=== PATIENT | male | born 1945 | race Caucasian/White ===

== ENCOUNTER → 2019-04-29 13:53 | Outpatient (BNVA) | payer MEDICARE, SELFPAY | PROVIDERS: Family Provider Nurse Practitioner Family; PCP Nurse Practitioner Family; Referring Provider Family Medicine; Visit Provider Internal Medicine Rheumatology | DX: M05.9 Rheumatoid arthritis with rheumatoid factor, unspecified (principal); Z79.899 Other long term (current) drug therapy | CPT/HCPCS: 85025 ==

== ENCOUNTER 2019-04-29 14:30 | Outpatient (CLI) | payer MEDICARE, SELFPAY ==
--- NOTE | 2019-04-29 14:46 | XR_ITS ---
WS: [id number] CHEST 2 VIEWS HISTORY: high risk medication use COMPARISON: 09/07/2018 Lungs: Stable bilateral pulmonary nodules. Seen on the prior CT of 08/10/2017. No pneumonia. Normal vas culature. Mild flattening of the diaphragms. Cardiac size: Normal. Mediastinum/Aorta: Normal mediastinum. Bones: Normal. XR/XR chest 2V* [id number] IMPRESSION: 1. Mild chronic emphysema. 2. Stable bilateral pulmonary nodules.
== END 2019-04-29 14:31 | disposition home or self-care (01) ==
LOC: RADWPI 14:35
PROVIDERS: Family Provider Nurse Practitioner Family; PCP Nurse Practitioner Family; Visit Provider Internal Medicine Rheumatology
DX: Z79.899 Other long term (current) drug therapy (principal); J43.9 Emphysema, unspecified; R91.8 Other nonspecific abnormal finding of lung field; M05.9 Rheumatoid arthritis with rheumatoid factor, unspecified; M17.0 Bilateral primary osteoarthritis of knee; Z87.891 Personal history of nicotine dependence
CPT/HCPCS: 36415; 71046; 80076; 82565; 85651; 86140; 99214

== ENCOUNTER → 2019-06-02 10:56 | Outpatient (BNVA) | payer MEDICARE, SELFPAY | PROVIDERS: Family Provider Nurse Practitioner Family; PCP Nurse Practitioner Family; Visit Provider Internal Medicine Rheumatology | DX: M05.9 Rheumatoid arthritis with rheumatoid factor, unspecified (principal); Z79.899 Other long term (current) drug therapy | CPT/HCPCS: 36415; 80076; 82565; 85025; 85651; 86140 ==

== ENCOUNTER → 2019-06-02 11:20 | Outpatient (BNVA) | payer MEDICARE, SELFPAY | PROVIDERS: Family Provider Nurse Practitioner Family; PCP Nurse Practitioner Family; Visit Provider Internal Medicine Rheumatology | DX: M05.9 Rheumatoid arthritis with rheumatoid factor, unspecified (principal); Z79.899 Other long term (current) drug therapy | CPT/HCPCS: 85025 ==

== ENCOUNTER → 2019-09-03 13:32 | Outpatient (BNVA) | payer MEDICARE, SELFPAY | PROVIDERS: Family Provider Nurse Practitioner Family; PCP Nurse Practitioner Family; Visit Provider Internal Medicine Rheumatology | DX: Z79.899 Other long term (current) drug therapy (principal) | CPT/HCPCS: 36415; 80076; 82565; 85025; 85651; 86140 ==

== ENCOUNTER → 2019-09-10 11:03 | Outpatient (BNVA) | payer MEDICARE, SELFPAY | PROVIDERS: Family Provider Nurse Practitioner Family; PCP Nurse Practitioner Family; Visit Provider Internal Medicine Rheumatology | DX: M05.79 Rheumatoid arthritis with rheumatoid factor of multiple sites without organ or systems involvement (principal); Z79.899 Other long term (current) drug therapy; J84.10 Pulmonary fibrosis, unspecified; G56.01 Carpal tunnel syndrome, right upper limb; R79.89 Other specified abnormal findings of blood chemistry; M17.0 Bilateral primary osteoarthritis of knee; Z79.1 Long term (current) use of non-steroidal anti-inflammatories (NSAID); Z87.891 Personal history of nicotine dependence | CPT/HCPCS: 99214 ==

== ENCOUNTER → 2019-11-19 13:43 | Outpatient (BNVA) | payer MEDICARE, SELFPAY | PROVIDERS: Family Provider Nurse Practitioner Family; PCP Nurse Practitioner Family; Visit Provider Family Medicine | DX: E11.9 Type 2 diabetes mellitus without complications (principal); I10 Essential (primary) hypertension; Z79.4 Long term (current) use of insulin; E78.2 Mixed hyperlipidemia; M05.79 Rheumatoid arthritis with rheumatoid factor of multiple sites without organ or systems involvement | CPT/HCPCS: 80053; 80061; 83036; 85025; 85651; 86140 ==

== ENCOUNTER → 2020-03-22 13:08 | Outpatient (BNVA) | payer MEDICARE, SELFPAY | PROVIDERS: Family Provider Nurse Practitioner Family; PCP Nurse Practitioner Family; Referring Provider Internal Medicine Rheumatology; Visit Provider Internal Medicine Rheumatology | DX: M05.79 Rheumatoid arthritis with rheumatoid factor of multiple sites without organ or systems involvement (principal); R79.89 Other specified abnormal findings of blood chemistry; Z79.899 Other long term (current) drug therapy; M19.90 Unspecified osteoarthritis, unspecified site; E11.9 Type 2 diabetes mellitus without complications; Z79.4 Long term (current) use of insulin | CPT/HCPCS: 80053; 80076; 82565; 83036; 85025; 85651; 86140 ==

== ENCOUNTER 2020-04-26 09:19 | Emergency (ER) | payer MEDICARE, OTHER, SELFPAY ==
[2020-04-26 09:29] VITALS: BP 153/92; PULSE 110; RESP 18; TEMP 36.4; O2SAT 93
--- NOTE | 2020-04-26 09:34 | XRR_ITS ---
PROCEDURE INFORMATION: Exam: XR Chest, 1 View Exam date and time: 04/26/2020 9:36 AM Age: 75 years old Clinical indication: Patient HX: Cough 3-4 days, copd, upper abd pain; Additional info: Covid exposure, cough TECHNIQUE: Imaging protocol: XR of the chest Views: 1 view. COMPARISON: CR XR chest 2V* [id number] 04/29/2019 3:03 PM FINDINGS: Lungs: Emphysema Subtle airspace disease right lung base. Pleural space: Unremarkable. No pleural effusion. No pneumothorax. Heart/Mediastinum: Unremarkable. No cardiomegaly. Bones/joints: Unremarkable. XR/XR chest 1V portable [id number] IMPRESSION: Subtle airspace disease right lung base. Follow-up recommended. Consider CT if indicated.
--- NOTE | 2020-04-26 09:42 | W.ED.COVID ---
HPI - COVID General: Chief Complaint: COVID symptoms Stated Complaint: Covid Symtoms/ fever/cough/SOB Time Seen by Provider: 04/26/20 09:33 Triage information: Has fever, cough or shortness of breath. No known COVID + exposure last 14 days History of Present Illness: HPI Narrative: Patient states he has had nausea vomiting diarrhea for the last 3 days. Has exposure to his brother who just tested positive last week. Patient denies fever chills cough or shortness of breath. MD complaint: reported COVID exposure Prior covid testing: no COVID 19 common symptoms: positive nausea, vomiting and diarrhea; negative fever(s), chills, non-productive cough, productive cough, dyspnea, body aches, headache(s), throat pain or nasal congestion COVID 19 other sytmptoms: negative chest pain Onset (ago): day(s) (3) Severity: mild Pertinent comorbid conditions: diabetes, hypertension and immunocompromised state Treatment prior to arrival: none COVID Results: SARS-CoV-2 Antigen (Rapid) Positive (Negative) H 04/26/20 10:04 04/26/20 Review of Systems Const: Denies: fever(s), chills or body aches Eyes: Denies: change in vision or blurry vision ENMT: Denies: throat pain or nasal congestion Card: Denies: chest pain or dyspnea on exertion Resp: Denies: dyspnea, productive cough or non-productive cough GI: Reports: nausea, vomiting and diarrhea : Denies: difficulty urinating Musc: Denies: extremity pain Skin/Breast: Denies: rash Neuro: Denies: headache(s) Psych: Denies: anxiety or depression Jann/Lymph: Denies: easy bruising PFSH ED PFSH: Medical History Arthritis of both knees Carpal tunnel syndrome of right wrist Chronic GERD Diabetes Elevated serum creatinine High risk medication use Hypertension Immunization counseling Mixed hyperlipidemia Pulmonary fibrosis 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 Vitamin D deficiency Surgical History History of carpal tunnel surgery of right wrist History of eye surgery bilateral History of surgery on arm left forearm Family History Other Diabetes Family history of premature coronary artery disease Hypertension Denies family history of Rheumatoid arthritis Lupus CAD (coronary artery disease) Chronic kidney disease (CKD) Cancer Stroke Social History (Reviewed 03/23/20 @ 14:13 by Marilee Streeter [facility]) Smoking and tobacco status: former smoker Alcohol intake: never History of recent travel: No Physical Exam Const: COMMON NORMALS: no acute distress, average body habitus and patient oriented x3 HENMT: COMMON NORMALS: normocephalic HEAD & SCALP: normal to inspection and normocephalic FACE & SINUS: normal facial exam Eye: COMMON NORMALS: conjunctivae normal GENERAL EYE: appearance normal, both eyes and all related structures CONJUNCTIVA: Yes conjunctivae normal Neck/C-Spine: COMMON NORMALS: no JVD Chest: COMMONS NORMALS: normal inspection of the chest Resp: COMMON NORMALS: normal respiratory effort and clear to auscultation bilaterally AUSCULTATION: clear to auscultation bilaterally Cardio: COMMON NORMALS: no JVD, regular rate and regular rhythm RATE: regular rate RHYTHM: regular rhythm GI: COMMON NORMALS: Normal to inspection, nondistended, normoactive bowel sounds present Extremity: COMMON NORMALS: normal to inspection and full ROM Neuro: COMMON NORMALS: patient oriented x3 Course Vital Signs: Vital signs: Vital Signs Temperature 98.6 F 04/26/20 14:27 Pulse Rate 73 04/26/20 14:27 Respiratory Rate 18 04/26/20 14:27 Blood Pressure 121/80 04/26/20 14:27 Pulse Oximetry 93 04/26/20 14:27 MDM - COVID MDM Narrative: Medical decision making narrative: Discussed at length with Dr. Beatty and Dr. garzon going over radiology results - lab results- plan of care, patient status. Discussed pulmonary emboli with patient and with Dr. Beatty and Dr. Garzon. Patient is stable and will receive outpatient therapy also bam infusion here today. Follow-up Dr. Nuñez this week. Lab Data: Labs: Lab Results 04/26/20 04/26/20 04/26/20 Range/Units 10:04 10:04 10:04 WBC 8.6 (4.0-10.0) 10^3/ uL RBC 4.35 (4.1-5.3) 10^6/u L Hgb 14.2 (11.7-16.6) g/dL Hct 43.0 (42.0-52.0) % MCV 98.9 H (80-94) fL MCH 32.6 (28.0-34.0) pg MCHC 33.0 (30.0-36.0) g/dL RDW 13.6 (12.1-15.1) % Plt Count 145 (130-400) 10^3/c mm MPV 9.9 (7.4-10.4) fL Neut % (Auto) 80.7 % Lymph % (Auto) 8.4 % Dane % (Auto) 9.2 % Eos % (Auto) 0.3 % Baso % (Auto) 0.6 % Neut # (Auto) 6.93 (1.8-7.7) 10^3/u L Lymph # (Auto) 0.7 L (0.8-4.8) 10^3/u L Dane # (Auto) 0.8 (0.2-0.9) 10^3/u L Eos # (Auto) 0.0 (0.0-0.8) 10^3/u L Baso # (Auto) 0.1 (0.0-0.1) 10^3/u L Nucleated RBC % (a uto) 0 % Nucleated RBCs # 0.0 /100WBC D-Dimer (0-0.59) ug/mIFE U Sodium 131 L (136-145) mmol/L Potassium 4.4 (3.5-5.1) mmol/L Chloride 95 L (98-107) mmol/L Carbon Dioxide 22 (22-29) mmol/L Anion Gap 18.4 (5-19) BUN 32 H (8-23) mg/dL Creatinine 1.6 H (0.7-1.2) mg/dL GFR Calculation Not Reportable Glucose 255 H (65-115) mg/dL Calculated Osmolal ity 288 (285-295) mOsm/k g Lactic Acid 2.1 (0.5-2.2) mmol/L Lactic Acid (Sepsi s) (0.5-2.2) mmol/L Calcium 9.1 (8.5-10.5) mg/dL Total Bilirubin 0.6 (0.15-1.2) mg/dL AST 46 H (0-40) U/L ALT 42 H (0-41) U/L Alkaline Phosphata se 62 (40-130) IU/L C-Reactive Protein 38.4 H (0.0-4.9) mg/L Total Protein 7.6 (6.6-8.7) g/dL Albumin 4.2 (3.5-5.2) g/dL Globulin 3.4 (1.3-4.6) g/dL Hepatitis A IgM Ab (Nonreactive) Hep Bs Antigen (Nonreactive) Hep B Core IgM Ab (Nonreactive) Hepatitis C Antibo dy (Nonreactive) Influenza Type A A g (Negative) Influenza Type B A g (Negative) SARS-CoV-2 Ag (Rap id) (Negative) 04/26/20 04/26/20 04/26/20 Range/Units 10:04 10:04 10:04 WBC (4.0-10.0) 10^3/ uL RBC (4.1-5.3) 10^6/u L Hgb (11.7-16.6) g/dL Hct (42.0-52.0) % MCV (80-94) fL MCH (28.0-34.0) pg MCHC (30.0-36.0) g/dL RDW (12.1-15.1) % Plt Count (130-400) 10^3/c mm MPV (7.4-10.4) fL Neut % (Auto) % Lymph % (Auto) % Dane % (Auto) % Eos % (Auto) % Baso % (Auto) % Neut # (Auto) (1.8-7.7) 10^3/u L Lymph # (Auto) (0.8-4.8) 10^3/u L Dane # (Auto) (0.2-0.9) 10^3/u L Eos # (Auto) (0.0-0.8) 10^3/u L Baso # (Auto) (0.0-0.1) 10^3/u L Nucleated RBC % (a uto) % Nucleated RBCs # /100WBC D-Dimer 3.44 H (0-0.59) ug/mIFE U Sodium (136-145) mmol/L Potassium (3.5-5.1) mmol/L Chloride (98-107) mmol/L Carbon Dioxide (22-29) mmol/L Anion Gap (5-19) BUN (8-23) mg/dL Creatinine (0.7-1.2) mg/dL GFR Calculation Glucose (65-115) mg/dL Calculated Osmolal ity (285-295) mOsm/k g Lactic Acid (0.5-2.2) mmol/L Lactic Acid (Sepsi s) (0.5-2.2) mmol/L Calcium (8.5-10.5) mg/dL Total Bilirubin (0.15-1.2) mg/dL AST (0-40) U/L ALT (0-41) U/L Alkaline Phosphata se (40-130) IU/L C-Reactive Protein (0.0-4.9) mg/L Total Protein (6.6-8.7) g/dL Albumin (3.5-5.2) g/dL Globulin (1.3-4.6) g/dL Hepatitis A IgM Ab (Nonreactive) Hep Bs Antigen (Nonreactive) Hep B Core IgM Ab (Nonreactive) Hepatitis C Antibo dy (Nonreactive) Influenza Type A A g Negative (Negative) Influenza Type B A g Positive H (Negative) SARS-CoV-2 Ag (Rap id) Positive H (Negative) 04/26/20 04/26/20 Range/Units 10:04 13:12 WBC (4.0-10.0) 10^3/ uL RBC (4.1-5.3) 10^6/u L Hgb (11.7-16.6) g/dL Hct (42.0-52.0) % MCV (80-94) fL MCH (28.0-34.0) pg MCHC (30.0-36.0) g/dL RDW (12.1-15.1) % Plt Count (130-400) 10^3/c mm MPV (7.4-10.4) fL Neut % (Auto) % Lymph % (Auto) % Dane % (Auto) % Eos % (Auto) % Baso % (Auto) % Neut # (Auto) (1.8-7.7) 10^3/u L Lymph # (Auto) (0.8-4.8) 10^3/u L Dane # (Auto) (0.2-0.9) 10^3/u L Eos # (Auto) (0.0-0.8) 10^3/u L Baso # (Auto) (0.0-0.1) 10^3/u L Nucleated RBC % (a uto) % Nucleated RBCs # /100WBC D-Dimer (0-0.59) ug/mIFE U Sodium (136-145) mmol/L Potassium (3.5-5.1) mmol/L Chloride (98-107) mmol/L Carbon Dioxide (22-29) mmol/L Anion Gap (5-19) BUN (8-23) mg/dL Creatinine (0.7-1.2) mg/dL GFR Calculation Glucose (65-115) mg/dL Calculated Osmolal ity (285-295) mOsm/k g Lactic Acid (0.5-2.2) mmol/L Lactic Acid (Sepsi s) 1.3 (0.5-2.2) mmol/L Calcium (8.5-10.5) mg/dL Total Bilirubin (0.15-1.2) mg/dL AST (0-40) U/L ALT (0-41) U/L Alkaline Phosphata se (40-130) IU/L C-Reactive Protein (0.0-4.9) mg/L Total Protein (6.6-8.7) g/dL Albumin (3.5-5.2) g/dL Globulin (1.3-4.6) g/dL Hepatitis A IgM Ab Non-reactive (Nonreactive) Hep Bs Antigen Non-reactive (Nonreactive) Hep B Core IgM Ab Non-reactive (Nonreactive) Hepatitis C Antibo dy Non-reactive (Nonreactive) Influenza Type A A g (Negative) Influenza Type B A g (Negative) SARS-CoV-2 Ag (Rap id) (Negative) COVID Results: SARS-CoV-2 Antigen (Rapid) Positive (Negative) H 04/26/20 10:04 04/26/20 Discharge Plan Discharge Patient Disposition: Home Clinical Impression: COVID-19, Influenza due to influenza virus, type B Pulmonary emboli Qualifiers: Pulmonary embolism type: other Chronicity: acute Acute cor pulmonale presence: without acute cor pulmonale Qualified Code(s): I26.99 - Other pulmonary embolism without acute cor pulmonale Condition: Stable Prescriptions: New Lovenox 80 mg/0.8 mL syringe 80 mg SUBCUT Q12H Qty: 8 RF: 0 No Action atorvastatin 40 mg tablet 40 mg PO DAILY 90 Days Qty: 90 RF: 3 omeprazole 40 mg capsule,delayed release(DR/EC) 40 mg PO DAILY Qty: 90 RF: 1 insulin detemir U-100 100 unit/mL (3 mL) insulin pen 30 unit SUBCUT DAILY 30 Days Qty: 15 RF: 5 (DME) Blood Glucose Test Strip See Rx Instructions .ROUTE .MEDSUPPLY Qty: 100 RF: 5 (DME) blood-glucose meter [Blood Glucose Monitoring] Kit See Rx Instructions .ROUTE .MEDSUPPLY Qty: 1 RF: 0 lisinopril-hydrochlorothiazide 20-12.5 mg tablet 2 tab PO DAILY 30 Days Qty: 60 RF: 5 acetaminophen [Tylenol Extra Strength] 500 mg tablet 1,000 mg PO Q6H PRN (Reason: Pain) RF: 0 calcium citrate 200 mg (950 mg) tablet 600 mg PO DAILY RF: 0 omega-3 fatty acids 1,000 mg capsule 1,000 mg PO DAILY RF: 0 cholecalciferol (vitamin D3) 1,000 unit capsule 1,000 unit PO DAILY RF: 0 multivitamin Tablet 1 tab PO QAM RF: 0 sulfasalazine 500 mg tablet 0.5 gm PO BID Qty: 60 RF: 3 prednisone 2.5 mg tablet 5 mg PO DAILY Qty: 60 RF: 0 (DME) pen needle, diabetic [BD Ultra-Fine Mini Pen Needle] 31 gauge x 3/16 needle See Rx Instructions .ROUTE .MEDSUPPLY Qty: 100 RF: 12 glimepiride 2 mg tablet 2 mg PO DAILY RF: 0 methotrexate sodium 2.5 mg tablet 10 mg PO Q7D RF: 0 gabapentin 300 mg capsule 300 mg PO TID RF: 0 folic acid 1 mg tablet 1 mg PO DAILY RF: 0 hydroxychloroquine 200 mg tablet 300 mg PO DAILY RF: 0 Discharge Orders: Discharge ED (Routine); Ordered 04/26/20 Ordered By: Compa Georges Referrals: Barrett Fuentes, COMBER SETTER [Primary Care Provider] - Discharge Diet: Advance as tolerated Discharge Activity: Increase activity as tolerated Activity Restrictions/Additional Instructions: Continue drink plenty of fluids continue to monitor blood sugar. Quarantine for at least 10 days. Make sure you wear your mask. Give yourself Lovenox shots twice a day as directed on label. Make sure you follow-up with your family medical provider this week to get refill on prescription continue for up to 12 weeks and decide on therapy for the pulmonary emboli. Return here if worsening symptoms severe shortness of breath or other problems. Go to outpatient to get your bam infusion done right now. Coding Level of Care Code ED Machine Container Washer for Jessica Fwd Exam Comprehensive
[2020-04-26 10:23] LABS: Basophils # 0.1 10^3/uL (0.0-0.1); Basophils % 0.6 %; Eosinophils % 0.3 %; Hemoglobin 14.2 g/dL (11.7-16.6); Lymphocytes # 0.7 10^3/uL (0.8-4.8); Lymphocytes % 8.4 %; Mean Corpuscular Hemoglobin 32.6 pg (28.0-34.0); Mean Corpuscular Volume 98.9 fL (80-94); Mean Platelet Volume 9.9 fL (7.4-10.4); Monocytes # 0.8 10^3/uL (0.2-0.9); Monocytes % 9.2 %; Neutrophils # 6.93 10^3/uL (1.8-7.7); Neutrophils % 80.7 %; Nucleated Red Blood Cells % 0 %; Platelet Count 145 10^3/cmm (130-400); Red Blood Count 4.35 10^6/uL (4.1-5.3); Red Cell Distribution Width 13.6 % (12.1-15.1); White Blood Count 8.6 10^3/uL (4.0-10.0)
[2020-04-26 10:45] LABS: D Dimer 3.44 ug/mIFEU (0-0.59); Influenza A by IFA Negative (Negative); Influenza B by IFA Positive (Negative); SARS Covid-2 Antigen Positive (Negative)
--- NOTE | 2020-04-26 10:48 | CT_ITS ---
WS: [id number] CT CHEST ANGIOGRAPHY WITH REFORMATS HISTORY: covid, Positive d-dimer TECHNIQUE: Contiguous axial images are obtained through the chest during arterial injection of intrav enous contrast. Images are reconstructed to evaluate the pulmonary arteries. MIP imaging also reviewe d. All CT scans at [facility] use at least one of these dose optimization techniques: aut omated exposure control; mA and/or kV adjustment per patient size (includes targeted exams where dose is matched to clinical indication); or iterative reconstruction. CONTRAST: Visipaque 320; 95 mL IV. DLP: 613.91 mGy.cm COMPARISON: 08/10/2017 Poor opacification of the pulmonary arteries. Centrally the main pulmonary artery opacification is li mited. There are filling defects extending into the RIGHT lower lobe and RIGHT middle lobe pulmonary artery. These are nonocclusive defects. Cannot exclude larger PE in the central pulmonary artery. Pul monary artery size is normal. Mild atherosclerosis aorta. Heart size is normal. No pericardial or ple ural effusion. Moderate changes of centrilobular emphysema. Peripheral reticular thickening bilaterally. Mild thicke chet along the RIGHT minor fissure. Similar to 2018. Small reactive mediastinal and hilar lymph nodes. Largest lymph node at the RIGHT hilum measures 13 m m. Hepatic steatosis. No adrenal mass. Perinephric stranding around the superior poles of each kidney. Remote healed rib fracture lateral inferior RIGHT thorax. Small hiatal hernia. CT/CT angio chest PE protcl [id number] IMPRESSION: 1. Poor opacification of the pulmonary artery. 2. There are linear nonocclusive filling defects in the RIGHT middle and lower lobe pulmonary arteries. The central main pulmonary artery is poorly opacified . Larger emboli not excluded. 3. Chronic emphysema. 4. Reactive adenopathy in the mediastinal and hilar regions. 5. Small hiatal hernia.
[2020-04-26 10:50] LABS: Lactic Sepsis W/Reflex 2.1 mmol/L (0.5-2.2)
[2020-04-26 10:52] LABS: Alanine Aminotransferase 42 U/L (0-41); Albumin Level 4.2 g/dL (3.5-5.2); Alkaline Phosphatase 62 IU/L (40-130); Anion Gap 18.4 (5-19); Aspartate Amino Transferase 46 U/L (0-40); Blood Urea Nitrogen 32 mg/dL (8-23); C Reactive Protein 38.4 mg/L (0.0-4.9); Calcium 9.1 mg/dL (8.5-10.5); Carbon Dioxide 22 mmol/L (22-29); Chloride 95 mmol/L (98-107); Globulin 3.4 g/dL (1.3-4.6); Glucose 255 mg/dL (65-115); Osmolality Calculated 288 mOsm/kg (285-295); Potassium 4.4 mmol/L (3.5-5.1); Sodium 131 mmol/L (136-145); Total Bilirubin 0.6 mg/dL (0.15-1.2); Total Protein 7.6 g/dL (6.6-8.7)
[2020-04-26] MEDS: sodium chloride 0.9% 1,000 ML 999 ML IV (10:56)
[2020-04-26 12:04] LABS: Reflex Lactate Order REFLEX LACTIC ORDERD
--- NOTE | 2020-04-26 13:50 | DCPLANNER ---
Addendum entered by Maryellen To 05/07/20 15:17: strategic account manager called to check on patient after getting the BAM infusion. strategic account manager unable to speak with patient at this time. Original Note: strategic account manager was asked to schedule a BAM infusion for patient. strategic account manager faxed signed order and patients information to the centralized scheduling.
[2020-04-26 14:06] VITALS: BP 118/61; O2SAT 95
[2020-04-26 14:10] VITALS: BP 130/68; PULSE 71; RESP 16; O2SAT 93
[2020-04-26 14:15] VITALS: BP 130/68; PULSE 73; RESP 17; O2SAT 93
[2020-04-26 14:20] VITALS: BP 130/68; PULSE 75; RESP 11; O2SAT 95
[2020-04-26 14:20] LABS: Lactic Acid level (Lactate) 1.3 mmol/L (0.5-2.2)
[2020-04-26 14:27] VITALS: BP 121/80; PULSE 73; RESP 18; TEMP 37; O2SAT 93
[2020-04-26] MEDS: enoxaparin 80 mg/0.8 mL Syringe SUBCUT (14:32)
[2020-04-26 16:01] LABS: Hepatitis A Antibody IgM Non-Reactive (Nonreactive); Hepatitis B Core IgM Non-Reactive (Nonreactive); Hepatitis B Surface Antigen Non-Reactive (Nonreactive); Hepatitis C Virus Antibody Non-Reactive (Nonreactive)
== END 2020-04-26 14:47 | disposition home or self-care (01) ==
PROVIDERS: Emergency Provider Nurse Practitioner Family; PCP Nurse Practitioner Family
DX: U07.1 COVID-19 (principal); J10.1 Influenza due to other identified influenza virus with other respiratory manifestations; I26.99 Other pulmonary embolism without acute cor pulmonale; Z79.4 Long term (current) use of insulin; E11.9 Type 2 diabetes mellitus without complications; I10 Essential (primary) hypertension; E78.2 Mixed hyperlipidemia; Z87.891 Personal history of nicotine dependence
CPT/HCPCS: 12345; 36415; 71045; 71275; 80053; 80074; 83605; 85025; 85378; 86140; 87426; 87804; 96372; 99282; J1650; J7030; Q9967

== ENCOUNTER 2020-04-28 11:00 | Emergency (ER) | payer MEDICARE, SELFPAY ==
[2020-04-28 11:45] VITALS: BP 122/74; PULSE 68; RESP 14; TEMP 36.7; O2SAT 95
--- NOTE | 2020-04-28 12:47 | W.ED.COVID ---
HPI - COVID General: Chief Complaint: COVID symptoms Stated Complaint: covid+ /LOW O2 SAT Time Seen by Provider: 04/28/20 12:19 Triage information: Has fever, cough or shortness of breath. Exposure to COVID + person last 14 days History of Present Illness: HPI Narrative: Patient is a 75-year-old male on day 5 of Covid symptoms who was initially seen in the emergency department on April 26 at which time he was diagnosed with COVID-19 as well as PE and started on Xarelto and given a dose of Banlamivimab. He was discharged home at that time and instructed to follow close with primary care which he did earlier today. When he arrived at primary care, oxygen saturation was found to be in the 80s. Given his recent diagnosis of both PE and COVID-19, the primary care physician elected to send him to the emergency department for further evaluation. On arrival, he states that he still feels sick, but significantly better than he did 2 days ago. He describes mild to moderate dyspnea with exertion, but has no dyspnea at rest and denies chest pain, lightheadedness, nausea, vomiting, current fever. He states that he has been compliant with his anticoagulation medication. He has no other acute complaints. 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 Vitamin D deficiency Surgical History History of carpal tunnel surgery of right wrist History of eye surgery bilateral History of surgery on arm left forearm Family History Other Diabetes Family history of premature coronary artery disease Hypertension Denies family history of Rheumatoid arthritis Lupus CAD (coronary artery disease) Chronic kidney disease (CKD) Cancer Stroke Social History Smoking and tobacco status: former smoker Alcohol intake: never History of recent travel: No Physical Exam Const: COMMON NORMALS: no acute distress, patient oriented x3 and alert HENMT: COMMON NORMALS: normocephalic and atraumatic HEAD & SCALP: normocephalic and atraumatic Eye: COMMON NORMALS: Equal, round and reactive pupils present, EOMs intact bilaterally and no scleral icterus PUPIL: Yes Equal, round and reactive pupils present Resp: COMMON NORMALS: normal respiratory effort and No retractions EFFORT & INSPECTION: No tachypneic, No respiratory distress, No decreased respiratory effort, No pursed lip breathing, No labored, No stridor, No retractions and No uses accessory muscles Cardio: COMMON NORMALS: regular rate, regular rhythm and No murmurs present (Cardio) RATE: regular rate RHYTHM: regular rhythm GI: COMMON NORMALS: Normal to inspection, nondistended, normoactive bowel sounds present, Soft to palpation and non-tender PALPATION: Yes Soft to palpation Neuro: COMMON NORMALS: patient oriented x3 SENSORIUM/ORIENTATION: Yes alert Skin: COMMON NORMALS: no rashes or lesions noted GENERAL SKIN EXAM: no rashes or lesions noted Course Vital Signs: Vital signs: Vital Signs Temperature 98.1 F 04/28/20 11:45 Pulse Rate 68 04/28/20 13:23 Respiratory Rate 22 H 04/28/20 13:23 Blood Pressure 122/74 04/28/20 11:45 Pulse Oximetry 92 04/28/20 15:00 MDM - COVID MDM Narrative: Medical decision making narrative: Patient was observed in the emergency department over roughly 1 hour during which time his oxygen saturation remained in the mid to high 90s. Had his saturations run in the 80s, I would have placed him on oxygen admitted to the hospital, however he appears to be stable and safe at this time. My suspicion is that pulse oximetry at the clinic may have been rushed and not as accurate as continuous monitoring in the emergency department. We discussed his situation at length and he feels comfortable going home at this time. I feel it is safe for him to do so. He will be discharged in stable condition knowing he is always welcome back in the emergency department should he begin to be more short of breath, lightheaded, experience chest pain, or any other symptoms concerning for worsening PE or Covid disease processes. COVID Results: SARS-CoV-2 Antigen (Rapid) Positive (Negative) H 04/26/20 10:04 04/26/20 Discharge Plan Discharge Patient Disposition: Home Clinical Impression: COVID-19, Pulmonary emboli Condition: Stable Prescriptions: No Action insulin detemir U-100 100 unit/mL (3 mL) insulin pen 30 unit SUBCUT DAILY 30 Days Qty: 15 RF: 5 (DME) Blood Glucose Test Strip See Rx Instructions .ROUTE .MEDSUPPLY Qty: 100 RF: 5 (DME) blood-glucose meter [Blood Glucose Monitoring] Kit See Rx Instructions .ROUTE .MEDSUPPLY Qty: 1 RF: 0 acetaminophen [Tylenol Extra Strength] 500 mg tablet 1,000 mg PO Q6H PRN (Reason: Pain) RF: 0 calcium citrate 200 mg (950 mg) tablet 600 mg PO DAILY@10 RF: 0 omega-3 fatty acids 1,000 mg capsule 1,000 mg PO DAILY@10 RF: 0 cholecalciferol (vitamin D3) 1,000 unit capsule 1,000 unit PO DAILY@10 RF: 0 multivitamin Tablet 1 tab PO DAILY@10 RF: 0 prednisone 2.5 mg tablet 5 mg PO DAILY Qty: 60 RF: 0 (DME) pen needle, diabetic [BD Ultra-Fine Mini Pen Needle] 31 gauge x 3/16 needle See Rx Instructions .ROUTE .MEDSUPPLY Qty: 100 RF: 12 glimepiride 2 mg tablet 2 mg PO DAILY@10 RF: 0 methotrexate sodium 2.5 mg tablet 10 mg PO Q7D RF: 0 gabapentin 300 mg capsule 300 mg PO TID RF: 0 folic acid 1 mg tablet 1 mg PO DAILY@10 RF: 0 hydroxychloroquine 200 mg tablet 300 mg PO DAILY@10 RF: 0 enoxaparin [Lovenox] 80 mg/0.8 mL syringe 80 mg SUBCUT Q12H Qty: 8 RF: 0 atorvastatin 40 mg tablet 40 mg PO DAILY@2200 RF: 0 sulfasalazine 500 mg tablet 0.5 gm PO BID@10,22 RF: 0 lisinopril-hydrochlorothiazide 20-12.5 mg tablet 2 tab PO DAILY@10 RF: 0 omeprazole 40 mg capsule,delayed release(DR/EC) 40 mg PO DAILY@10 RF: 0 Lantus U-100 Insulin 100 unit/mL Solution 30 unit SUBCUT DAILY@22 RF: 0 Discharge Orders: Discharge ED (Routine); Ordered 04/28/20 Ordered By: Gonsalo Pedroza Referrals: Barrett Fuentes FNP [Primary Care Provider] - Discharge Diet: Usual diet Discharge Activity: Increase activity as tolerated Activity Restrictions/Additional Instructions: You were sent to the emergency department today because you have both the diagnoses of pulmonary embolism and COVID-19. This combination puts you at risk for low oxygen levels, however while here your levels have been stable and safe. You do not qualify for home oxygen and would not benefit from being admitted to the hospital at this time. You are on day 5 of your symptoms, and sometimes people get worse around day 8 or 10 of COVID-19. Please be mindful of the way feel and if you become short of breath or lightheaded please have no hesitation to return to the emergency department. Coding Level of Care Code ED Ict Business Development Manager for Jessica Fwd Exam Detailed
[2020-04-28 13:23] VITALS: PULSE 68; RESP 22; O2SAT 90
[2020-04-28 13:24] VITALS: O2SAT 90
[2020-04-28 14:00] VITALS: O2SAT 92
[2020-04-28 14:02] VITALS: O2SAT 91; O2SAT 94
[2020-04-28 15:00] VITALS: O2SAT 92
== END 2020-04-28 15:01 | disposition home or self-care (01) ==
PROVIDERS: Emergency Provider Student in an Organized Health Care Education/Training Program; PCP Nurse Practitioner Family
DX: U07.1 COVID-19 (principal); I26.99 Other pulmonary embolism without acute cor pulmonale; Z79.4 Long term (current) use of insulin; E11.9 Type 2 diabetes mellitus without complications; I10 Essential (primary) hypertension; E78.2 Mixed hyperlipidemia; Z87.891 Personal history of nicotine dependence
CPT/HCPCS: 12345; 94760; 99282

== ENCOUNTER 2020-05-03 14:21 | Emergency (ER) | payer MEDICARE, SELFPAY ==
[2020-05-03 15:42] VITALS: BP 113/70; PULSE 99; RESP 14; TEMP 39.1; O2SAT 90
--- NOTE | 2020-05-03 15:46 | XR_ITS ---
WS: [id number] Exam: XR chest 1V portable [id number] Date/Time of Exam: 05/03/2020 3:59 PM Reason For Exam: covid+, , sob Comparison 04/26/2020. Ill-defined airspace opacities seen in the mid and lower right lung and the left lung base. Findings are suspicious for pneumonia. Heart size is normal. The mediastinum and bony thorax are unremarkable. The lungs are fully inflated. No pleural effusions. XR/XR chest 1V portable [id number] IMPRESSION: 1. Subtle airspace opacities in the mid and lower right lung and left base susp icious for pneumonia.
[2020-05-03 16:45] LABS: ABG PCO2 30.5 mmHg (35-45); ABG PH Result 7.43 (7.35-7.45); Arterial Blood Gas Hematocrit 38.2 % (42-52); Base Excess ABG -3.5 mmol/L (-2.0-2.0); Blood Gas Allen Test Pos; Blood Gas Operator Identificat CAK; Blood Gas Sample Site Brachial, left; Blood Gas Sample Type Arterial; Oxygen Device ROOM AIR
[2020-05-03 18:35] VITALS: BP 106/74; PULSE 81; RESP 18; O2SAT 95; O2SAT 97
[2020-05-03 18:40] LABS: Basophils % 0.3 %; Eosinophils % 0.5 %; Hematocrit 35.4 % (42.0-52.0); Hemoglobin 12.1 g/dL (11.7-16.6); Lymphocytes % 17.1 %; Mean Corpuscular HGB Conc 34.2 g/dL (30.0-36.0); Mean Corpuscular Volume 96.5 fL (80-94); Mean Platelet Volume 9.9 fL (7.4-10.4); Monocytes # 0.7 10^3/uL (0.2-0.9); Monocytes % 11.5 %; Neutrophils # 4.17 10^3/uL (1.8-7.7); Neutrophils % 69.8 %; Nucleated Red Blood Cells % 0 %; Platelet Count 184 10^3/cmm (130-400); Red Blood Count 3.67 10^6/uL (4.1-5.3); Red Cell Distribution Width 13.8 % (12.1-15.1)
[2020-05-03 19:05] LABS: Fibrinogen 498 mg/dL (174-498)
[2020-05-03 19:13] LABS: Lactic Sepsis W/Reflex 1.3 mmol/L (0.5-2.2)
[2020-05-03 19:30] LABS: Procalcitonin 0.12 ng/mL (0-0.5)
[2020-05-03 19:40] VITALS: O2SAT 91; O2SAT 95
[2020-05-03 19:51] LABS: Alanine Aminotransferase 45 U/L (0-41); Albumin Level 3.5 g/dL (3.5-5.2); Alkaline Phosphatase 37 IU/L (40-130); Aspartate Amino Transferase 70 U/L (0-40); Blood Urea Nitrogen 35 mg/dL (8-23); C Reactive Protein 88.8 mg/L (0.0-4.9); Calcium 11.5 mg/dL (8.5-10.5); Carbon Dioxide 21 mmol/L (22-29); Chloride 99 mmol/L (98-107); Globulin 3.6 g/dL (1.3-4.6); Glucose 188 mg/dL (65-115); Magnesium 1.8 mg/dL (1.7-2.3); Osmolality Calculated 293 mOsm/kg (285-295); Sodium 135 mmol/L (136-145); Total Bilirubin 0.6 mg/dL (0.15-1.2); Total Protein 7.1 g/dL (6.6-8.7)
[2020-05-03 19:52] LABS: Anion Gap 19.3 (5-19); Potassium 4.3 mmol/L (3.5-5.1)
[2020-05-03 20:07] LABS: Ferritin 2166 ng/mL (30-400)
--- NOTE | 2020-05-03 20:29 | W.ED.COVID ---
HPI - COVID General: Chief Complaint: COVID symptoms Stated Complaint: SOB, COVID+ Time Seen by Provider: 05/03/20 17:32 Source: patient Mode of arrival: ambulatory Limitations: no limitations Triage information: Has fever, cough or shortness of breath. Exposure to COVID + person last 14 days History of Present Illness: HPI Narrative: Mr. Chávez is a pleasant 75-year-old male who was diagnosed with COVID-19 7 days ago. He came into the emergency department at the time with complaints of shortness of breath and on evaluation was tested for COVID-19 and who tested positive. At that time he also was diagnosed with influenza, and pulmonary embolism and was started on anticoagulation. He saw his primary care provider 2 days after that and he was noted to be hypoxic so he was sent to the emergency department for evaluation. Emergency department he was not hypoxic and was discharged back home. He comes back today with complaints of feeling short of breath. He was also noted to be hypoxic. Patient states his appetite has decreased and he feels pretty weak. MD complaint: known COVID positive Prior covid testing: yes, results known COVID 19 common symptoms: positive fever(s), chills, dyspnea, fatigue, body aches and diarrhea; negative cough, non-productive cough, productive cough, headache(s), throat pain, nasal congestion, nausea or vomiting COVID 19 other sytmptoms: positive requiring oxygen; negative chest pressure, chest pain, pleuritic pain, requiring more oxygen, respiratory distress, cyanosis, lethargy, confusion or new neurological complaints COVID Results: SARS-CoV-2 Antigen (Rapid) Positive (Negative) H 04/26/20 10:04 04/26/20 Review of Systems General: Reports: 10 or more systems reviewed and unremarkable except in HPI and below Const: Reports: fever(s), chills, body aches and fatigue Eyes: Denies: change in vision or blurry vision ENMT: Denies: throat pain or nasal congestion Card: Denies: chest pain Resp: Reports: dyspnea; Denies: productive cough or non-productive cough GI: Reports: diarrhea; Denies: nausea or vomiting : Denies: flank pain, dysuria, urinary frequency, urinary urgency or urinary hesitancy Musc: Denies: neck pain, back pain or extremity swelling Skin/Breast: Denies: rash, pruritus or erythema Neuro: Denies: headache(s) or confusion Endo: Denies: polyuria, polydipsia or tired all the time PFSH ED PFSH: Medical History (Reviewed 05/03/20 @ 22:18 by Sarah Rivera MD, [facility] [place]) Arthritis of both knees Carpal tunnel syndrome of right wrist Chronic GERD Diabetes Elevated serum creatinine High risk medication use Hypertension Immunization counseling Mixed hyperlipidemia Pulmonary fibrosis 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 Vitamin D deficiency Surgical History (Reviewed 05/03/20 @ 22:18 by Sarah Rivera MD, [facility] [place]) History of carpal tunnel surgery of right wrist History of eye surgery bilateral History of surgery on arm left forearm Family History (Reviewed 05/03/20 @ 22:18 by Sarah Rivera MD, [facility] [place]) Other Diabetes Family history of premature coronary artery disease Hypertension Denies family history of Rheumatoid arthritis Lupus CAD (coronary artery disease) Chronic kidney disease (CKD) Cancer Stroke Social History (Reviewed 05/03/20 @ 22:18 by Sarah Rivera MD, [facility] [place]) Smoking and tobacco status: former smoker Alcohol intake: never History of recent travel: No Physical Exam Const: COMMON NORMALS: no acute distress, average body habitus, patient oriented x3, no limitations, healthy appearing, alert and well nourished HENMT: COMMON NORMALS: normocephalic, atraumatic and moist oral mucous membranes HEAD & SCALP: normocephalic and atraumatic Neck/C-Spine: COMMON NORMALS: no meningeal signs and no JVD Resp: COMMON NORMALS: normal respiratory effort, No retractions, No use of accessory muscles, clear to auscultation bilaterally and percussion normal AUSCULTATION: clear to auscultation bilaterally PERCUSSION: percussion normal Cardio: COMMON NORMALS: no JVD, regular rate, regular rhythm, S1 normal heart sound present, S2 normal heart sound present, No gallops present (Cardio), No clicks present (Cardio), No murmurs present (Cardio), No rub (Cardio) and Peripheral pulses 2+ throughout RATE: regular rate RHYTHM: regular rhythm HEART SOUNDS: S1 normal heart sound present and S2 normal heart sound present PERIPHERAL PULSES: Peripheral pulses 2+ throughout GI: COMMON NORMALS: Normal to inspection, nondistended, normoactive bowel sounds present, Soft to palpation, non-tender, No hepatosplenomegaly present, no masses and no bruits PALPATION: Yes Soft to palpation and Yes No hepatosplenomegaly present Extremity: COMMON NORMALS: normal to inspection, full ROM, capillary refill normal, no calf tenderness and no pedal edema Neuro: COMMON NORMALS: patient oriented x3 SENSORIUM/ORIENTATION: Yes alert MENINGEAL SIGNS: Yes no meningeal signs Skin: COMMON NORMALS: no rashes or lesions noted, no wounds, turgor normal, no jaundice, no petechiae and no mottling GENERAL SKIN EXAM: no rashes or lesions noted and turgor normal Course Reevaluation(s): Reevaluation #1: Discussed his lab and imaging findings with him. Explained that he is requiring oxygen and since this is his third visit to the emergency department for the same I advised that he be admitted to the hospital for further evaluation and management. The patient however declined and felt he was well enough to be discharged home. We will arrange for home oxygen and discharge him home on oxygen. He voiced understanding and is in agreement with the plan Time: 20:29 Reevaluation #2: Discussed with the patient's brother. The brother was concerned that we were discharging the patient home and I explained that the patient chose to be discharged home and declined hospital admission. I advised that since the patient is competent to make a medical decision I have to go by his wishes. I advised the brother to try to convince him to stay but the brother says that the patient is pretty stubborn and will not change his mind. They advised to bring him back if they have any concerns or if he gets any worse. Time: 20:42 Vital Signs: Vital signs: Vital Signs Temperature 102.3 F H 05/03/20 15:42 Pulse Rate 81 05/03/20 21:52 Respiratory Rate 18 05/03/20 21:52 Blood Pressure 109/85 05/03/20 21:52 Pulse Oximetry 94 05/03/20 21:52 MDM - COVID MDM Narrative: Medical decision making narrative: 75-year-old male who was recently diagnosed with COVID-19, influenza, pulmonary embolism. This is the third visit to the emergency department for the same and he was advised to be admitted to the hospital. Patient however declined hospital admission. Home oxygen was arranged for this patient and he is discharged home on home oxygen. He was also given a prescription for oral dexamethasone. He has already received a monoclonal antibody infusion 7 days ago. Medical Records: Attestation: I reviewed the patient's medical records. Lab Data: Attestation: I reviewed the patient's lab results. Labs: Lab Results 05/03/20 05/03/20 05/03/20 Range/Units 16:34 18:27 18:27 WBC 6.0 (4.0-10.0) 10^3/ uL RBC 3.67 L (4.1-5.3) 10^6/u L Hgb 12.1 (11.7-16.6) g/dL Hct 35.4 L (42.0-52.0) % MCV 96.5 H (80-94) fL MCH 33.0 (28.0-34.0) pg MCHC 34.2 (30.0-36.0) g/dL RDW 13.8 (12.1-15.1) % Plt Count 184 (130-400) 10^3/c mm MPV 9.9 (7.4-10.4) fL Neut % (Auto) 69.8 % Lymph % (Auto) 17.1 % Hickman % (Auto) 11.5 % Eos % (Auto) 0.5 % Baso % (Auto) 0.3 % Neut # (Auto) 4.17 (1.8-7.7) 10^3/u L Lymph # (Auto) 1.0 (0.8-4.8) 10^3/u L Hickman # (Auto) 0.7 (0.2-0.9) 10^3/u L Eos # (Auto) 0.0 (0.0-0.8) 10^3/u L Baso # (Auto) 0.0 (0.0-0.1) 10^3/u L Nucleated RBC % (a uto) 0 % Nucleated RBCs # 0.0 /100WBC Fibrinogen 498 (174-498) mg/dL Specimen Type Arterial Sample Site Brachial, left ABG pH 7.43 (7.35-7.45) ABG pCO2 30.5 L (35-45) mmHg ABG pO2 55.0 L (80.0-100.0) mmH g ABG HCO3 20.0 L (22-26) mmol/L ABG Base Excess -3.5 L (-2.0-2.0) mmol/ L Sridhar Test Pos Hematocrit 38.2 L (42-52) % O2 Delivery Device Room air FiO2 21.0 % [employer]man ID Cak Sodium (136-145) mmol/L Potassium (3.5-5.1) mmol/L Chloride (98-107) mmol/L Carbon Dioxide (22-29) mmol/L Anion Gap (5-19) BUN (8-23) mg/dL Creatinine (0.7-1.2) mg/dL GFR Calculation Glucose (65-115) mg/dL Calculated Osmolal ity (285-295) mOsm/k g Lactic Acid (0.5-2.2) mmol/L Calcium (8.5-10.5) mg/dL Magnesium (1.7-2.3) mg/dL Ferritin (30-400) ng/mL Total Bilirubin (0.15-1.2) mg/dL AST (0-40) U/L ALT (0-41) U/L Alkaline Phosphata se (40-130) IU/L Lactate Dehydrogen ase (135-225) U/L C-Reactive Protein (0.0-4.9) mg/L Total Protein (6.6-8.7) g/dL Albumin (3.5-5.2) g/dL Globulin (1.3-4.6) g/dL Procalcitonin (0-0.5) ng/mL 05/03/20 05/03/20 Range/Units 18:27 18:27 WBC (4.0-10.0) 10^3/ uL RBC (4.1-5.3) 10^6/u L Hgb (11.7-16.6) g/dL Hct (42.0-52.0) % MCV (80-94) fL MCH (28.0-34.0) pg MCHC (30.0-36.0) g/dL RDW (12.1-15.1) % Plt Count (130-400) 10^3/c mm MPV (7.4-10.4) fL Neut % (Auto) % Lymph % (Auto) % Hickman % (Auto) % Eos % (Auto) % Baso % (Auto) % Neut # (Auto) (1.8-7.7) 10^3/u L Lymph # (Auto) (0.8-4.8) 10^3/u L Hickman # (Auto) (0.2-0.9) 10^3/u L Eos # (Auto) (0.0-0.8) 10^3/u L Baso # (Auto) (0.0-0.1) 10^3/u L Nucleated RBC % (a uto) % Nucleated RBCs # /100WBC Fibrinogen (174-498) mg/dL Specimen Type Sample Site ABG pH (7.35-7.45) ABG pCO2 (35-45) mmHg ABG pO2 (80.0-100.0) mmH g ABG HCO3 (22-26) mmol/L ABG Base Excess (-2.0-2.0) mmol/ L Sridhar Test Hematocrit (42-52) % O2 Delivery Device FiO2 % [employer]man ID Sodium 135 L (136-145) mmol/L Potassium 4.3 (3.5-5.1) mmol/L Chloride 99 (98-107) mmol/L Carbon Dioxide 21 L (22-29) mmol/L Anion Gap 19.3 H (5-19) BUN 35 H (8-23) mg/dL Creatinine 1.3 H (0.7-1.2) mg/dL GFR Calculation Not Reportable Glucose 188 H (65-115) mg/dL Calculated Osmolal ity 293 (285-295) mOsm/k g Lactic Acid 1.3 (0.5-2.2) mmol/L Calcium 11.5 H (8.5-10.5) mg/dL Magnesium 1.8 (1.7-2.3) mg/dL Ferritin 2166 H (30-400) ng/mL Total Bilirubin 0.6 (0.15-1.2) mg/dL AST 70 H (0-40) U/L ALT 45 H (0-41) U/L Alkaline Phosphata se 37 L (40-130) IU/L Lactate Dehydrogen ase 370 H (135-225) U/L C-Reactive Protein 88.8 H (0.0-4.9) mg/L Total Protein 7.1 (6.6-8.7) g/dL Albumin 3.5 (3.5-5.2) g/dL Globulin 3.6 (1.3-4.6) g/dL Procalcitonin 0.12 (0-0.5) ng/mL COVID Results: SARS-CoV-2 Antigen (Rapid) Positive (Negative) H 04/26/20 10:04 04/26/20 Discharge Plan Discharge Patient Disposition: Home Clinical Impression: COVID-19 Pulmonary embolism Qualifiers: Pulmonary embolism type: unspecified Chronicity: acute Acute cor pulmonale presence: without acute cor pulmonale Qualified Code(s): I26.99 - Other pulmonary embolism without acute cor pulmonale Condition: Stable Prescriptions: New dexamethasone 6 mg tablet 6 mg PO DAILY Qty: 5 RF: 0 Continued insulin detemir U-100 100 unit/mL (3 mL) insulin pen 30 unit SUBCUT DAILY 30 Days Qty: 15 RF: 5 (DME) Blood Glucose Test Strip See Rx Instructions .ROUTE .MEDSUPPLY Qty: 100 RF: 5 (DME) blood-glucose meter [Blood Glucose Monitoring] Kit See Rx Instructions .ROUTE .MEDSUPPLY Qty: 1 RF: 0 acetaminophen [Tylenol Extra Strength] 500 mg tablet 1,000 mg PO Q6H PRN (Reason: Pain) RF: 0 calcium citrate 200 mg (950 mg) tablet 600 mg PO DAILY@10 RF: 0 omega-3 fatty acids 1,000 mg capsule 1,000 mg PO DAILY@10 RF: 0 cholecalciferol (vitamin D3) 1,000 unit capsule 1,000 unit PO DAILY@10 RF: 0 multivitamin Tablet 1 tab PO DAILY@10 RF: 0 prednisone 2.5 mg tablet 5 mg PO DAILY Qty: 60 RF: 0 (DME) pen needle, diabetic [BD Ultra-Fine Mini Pen Needle] 31 gauge x 3/16 needle See Rx Instructions .ROUTE .MEDSUPPLY Qty: 100 RF: 12 enoxaparin [Lovenox] 80 mg/0.8 mL syringe 80 mg SUBCUT Q12H Qty: 11.2 RF: 3 glimepiride 2 mg tablet 2 mg PO DAILY@10 RF: 0 methotrexate sodium 2.5 mg tablet 10 mg PO Q7D RF: 0 gabapentin 300 mg capsule 300 mg PO TID RF: 0 folic acid 1 mg tablet 1 mg PO DAILY@10 RF: 0 hydroxychloroquine 200 mg tablet 300 mg PO DAILY@10 RF: 0 atorvastatin 40 mg tablet 40 mg PO DAILY@2200 RF: 0 sulfasalazine 500 mg tablet 0.5 gm PO BID@10,22 RF: 0 lisinopril-hydrochlorothiazide 20-12.5 mg tablet 2 tab PO DAILY@10 RF: 0 omeprazole 40 mg capsule,delayed release(DR/EC) 40 mg PO DAILY@10 RF: 0 Lantus U-100 Insulin 100 unit/mL Solution 30 unit SUBCUT DAILY@22 RF: 0 Discharge Orders: Discharge ED (Routine); Ordered 05/03/20 Ordered By: Sarah Rivera Other Ambulatory Orders: DME: Oxygen (Order) Location: None Selected Ordered By: Sarah Rivera Referrals: Barrett Fuentes FNP [Primary Care Provider] - 1-3 days Discharge Diet: Usual diet Discharge Activity: Increase activity as tolerated Patient Instructions: Pulmonary Embolism (GEN), Viral Syndrome (ED) Activity Restrictions/Additional Instructions: Return for any new or worsening symptoms. Follow-up with your primary care provider tomorrow via telemedicine so they can check to see how you are doing. Continue your medications as prescribed especially blood thinners and steroids. Coding Level of Care Code ED Program Support Clerk for Jessica Perez
[2020-05-03 21:17] LABS: Lactate Dehydrogenase 370 U/L (135-225)
[2020-05-03 21:52] VITALS: BP 109/85; PULSE 81; RESP 18; O2SAT 94
== END 2020-05-03 21:54 | disposition home or self-care (01) ==
PROVIDERS: Nurse Practitioner Family; Emergency Provider Family Medicine; PCP Nurse Practitioner Family
DX: U07.1 COVID-19 (principal); I26.99 Other pulmonary embolism without acute cor pulmonale; Z79.4 Long term (current) use of insulin; E11.9 Type 2 diabetes mellitus without complications; I10 Essential (primary) hypertension; E78.2 Mixed hyperlipidemia; Z87.891 Personal history of nicotine dependence
CPT/HCPCS: 12345; 36600; 71045; 80053; 82728; 82803; 83605; 83615; 83735; 84145; 85025; 85384; 86140; 99283

== ENCOUNTER → 2020-06-09 14:20 | Outpatient (BNVA) | payer MEDICARE, SELFPAY | PROVIDERS: PCP Family Medicine; Visit Provider Internal Medicine Rheumatology | DX: M19.90 Unspecified osteoarthritis, unspecified site (principal); Z79.899 Other long term (current) drug therapy; R79.89 Other specified abnormal findings of blood chemistry | CPT/HCPCS: 80076; 82565; 85025; 86140 ==

== ENCOUNTER → 2020-08-17 10:49 | Outpatient (BNVA) | payer MEDICARE, SELFPAY | PROVIDERS: PCP Family Medicine; Visit Provider Family Medicine | DX: E11.9 Type 2 diabetes mellitus without complications (principal); R79.89 Other specified abnormal findings of blood chemistry; E78.2 Mixed hyperlipidemia; L70.8 Other acne; E87.1 Hypo-osmolality and hyponatremia; E83.51 Hypocalcemia; Z79.4 Long term (current) use of insulin | CPT/HCPCS: 80053; 80061; 83036 ==

== ENCOUNTER → 2020-11-29 14:27 | Outpatient (BNVA) | payer MEDICARE, SELFPAY | PROVIDERS: PCP Family Medicine; Referring Provider Internal Medicine Rheumatology; Visit Provider Internal Medicine Rheumatology | DX: M05.79 Rheumatoid arthritis with rheumatoid factor of multiple sites without organ or systems involvement (principal); Z79.899 Other long term (current) drug therapy | CPT/HCPCS: 80076; 82565; 85025; 86140 ==

== ENCOUNTER → 2020-12-06 14:48 | Outpatient (BNVA) | payer MEDICARE, SELFPAY | PROVIDERS: PCP Family Medicine; Visit Provider Internal Medicine Rheumatology | DX: M05.79 Rheumatoid arthritis with rheumatoid factor of multiple sites without organ or systems involvement (principal); Z79.899 Other long term (current) drug therapy; G56.01 Carpal tunnel syndrome, right upper limb; M17.0 Bilateral primary osteoarthritis of knee; Z71.89 Other specified counseling; Z87.891 Personal history of nicotine dependence | CPT/HCPCS: 99214 ==

== ENCOUNTER → 2021-03-08 08:58 | Outpatient (BNVA) | payer MEDICARE, SELFPAY | PROVIDERS: PCP Family Medicine; Visit Provider Family Medicine | DX: E11.9 Type 2 diabetes mellitus without complications (principal); Z79.4 Long term (current) use of insulin; I10 Essential (primary) hypertension | CPT/HCPCS: 36416; 80053; 82962; 83036 ==

== ENCOUNTER → 2021-03-24 13:20 | Outpatient (BNVA) | payer MEDICARE, SELFPAY | PROVIDERS: PCP Family Medicine; Visit Provider Internal Medicine Rheumatology | DX: M05.79 Rheumatoid arthritis with rheumatoid factor of multiple sites without organ or systems involvement (principal); Z79.899 Other long term (current) drug therapy; G56.01 Carpal tunnel syndrome, right upper limb; M17.0 Bilateral primary osteoarthritis of knee; J84.10 Pulmonary fibrosis, unspecified; Z71.89 Other specified counseling; Z87.891 Personal history of nicotine dependence; E11.9 Type 2 diabetes mellitus without complications; Z79.4 Long term (current) use of insulin | CPT/HCPCS: 99214 ==

== ENCOUNTER 2021-03-24 15:14 | Outpatient (CLI) | payer MEDICARE, SELFPAY ==
[2021-03-24 15:55] LABS: Basophils # 0.1 10^3/uL (0.0-0.1); Basophils % 1.1 %; Eosinophils # 0.1 10^3/uL (0.0-0.8); Hematocrit 34.6 % (42.0-52.0); Hemoglobin 11.4 g/dL (11.7-16.6); Lymphocytes % 12.2 %; Mean Corpuscular HGB Conc 32.9 g/dL (30.0-36.0); Mean Corpuscular Hemoglobin 33.4 pg (28.0-34.0); Mean Corpuscular Volume 101.5 fl (80-94); Mean Platelet Volume 9.4 fL (7.4-10.4); Monocytes # 0.6 10^3/uL (0.2-0.9); Monocytes % 7.6 %; Neutrophils % 76.2 %; Nucleated Red Blood Cells % 0 %; Platelet Count 301 10^3/cmm (130-400); Red Blood Count 3.41 10^6/uL (4.1-5.3); White Blood Count 8.3 10^3/uL (4.0-10.0)
[2021-03-24 16:11] LABS: Calcium 9.3 mg/dL (8.5-10.5)
[2021-03-24 16:12] LABS: Blood Urea Nitrogen 67 mg/dL (8-23); Calcium 9.2 mg/dL (8.5-10.5); Carbon Dioxide 16 mmol/L (22-29); Chloride 97 mmol/L (98-107); Glucose 223 mg/dL (65-115); Osmolality Calculated 298 mOsm/kg (285-295); Sodium 131 mmol/L (136-145)
[2021-03-24 16:27] LABS: Estmated Average Glucose 217; Hemoglobin A1C 9.2 % (4.0-6.0)
[2021-03-24 17:42] LABS: 25 Hydroxy Vitamin D 22 ng/mL (30-100)
== END 2021-03-24 15:15 | disposition home or self-care (01) ==
LOC: LAB 15:23
PROVIDERS: PCP Family Medicine; Visit Provider Internal Medicine Rheumatology
DX: M05.79 Rheumatoid arthritis with rheumatoid factor of multiple sites without organ or systems involvement (principal); Z79.899 Other long term (current) drug therapy; E11.9 Type 2 diabetes mellitus without complications; Z79.4 Long term (current) use of insulin
CPT/HCPCS: 36415; 80048; 82040; 82306; 82310; 83036; 85025

== ENCOUNTER → 2021-03-28 10:38 | Outpatient (BNVA) | payer MEDICARE, SELFPAY | PROVIDERS: PCP Family Medicine; Visit Provider Family Medicine | DX: J18.9 Pneumonia, unspecified organism (principal); R79.89 Other specified abnormal findings of blood chemistry; J44.1 Chronic obstructive pulmonary disease with (acute) exacerbation; J44.9 Chronic obstructive pulmonary disease, unspecified; E11.9 Type 2 diabetes mellitus without complications; Z79.4 Long term (current) use of insulin; Z87.891 Personal history of nicotine dependence; E55.9 Vitamin D deficiency, unspecified; Z79.899 Other long term (current) drug therapy | CPT/HCPCS: 71046; 80048 ==

== ENCOUNTER → 2021-06-06 11:24 | Outpatient (BNVA) | payer MEDICARE, SELFPAY | PROVIDERS: PCP Family Medicine; Visit Provider Family Medicine | DX: E78.2 Mixed hyperlipidemia (principal); I10 Essential (primary) hypertension; E11.9 Type 2 diabetes mellitus without complications; Z79.899 Other long term (current) drug therapy; M05.79 Rheumatoid arthritis with rheumatoid factor of multiple sites without organ or systems involvement; R25.2 Cramp and spasm | CPT/HCPCS: 80053; 80061; 83036 ==

== ENCOUNTER → 2021-12-01 13:50 | Outpatient (BNVA) | payer MEDICARE, SELFPAY | PROVIDERS: PCP Family Medicine; Visit Provider Family Medicine | DX: E11.9 Type 2 diabetes mellitus without complications (principal); Z79.4 Long term (current) use of insulin; I10 Essential (primary) hypertension | CPT/HCPCS: 80053; 83036 ==

== ENCOUNTER → 2022-02-28 10:43 | Outpatient (BNVA) | payer MEDICARE, SELFPAY | PROVIDERS: PCP Family Medicine; Visit Provider Family Medicine | DX: E11.9 Type 2 diabetes mellitus without complications (principal); I10 Essential (primary) hypertension | CPT/HCPCS: 80048; 83036 ==

== ENCOUNTER → 2022-05-31 13:22 | Outpatient (BNVA) | payer MEDICARE, SELFPAY | PROVIDERS: PCP Family Medicine; Visit Provider Family Medicine | DX: E78.2 Mixed hyperlipidemia (principal); E11.9 Type 2 diabetes mellitus without complications; M05.79 Rheumatoid arthritis with rheumatoid factor of multiple sites without organ or systems involvement; I10 Essential (primary) hypertension; Z79.4 Long term (current) use of insulin | CPT/HCPCS: 80053; 80061; 83036; 85025; 85651; 86140 ==

== ENCOUNTER → 2022-08-30 14:36 | Outpatient (BNVA) | payer MEDICARE, SELFPAY | PROVIDERS: PCP Family Medicine; Visit Provider Family Medicine | DX: E11.9 Type 2 diabetes mellitus without complications (principal); Z79.4 Long term (current) use of insulin; I10 Essential (primary) hypertension | CPT/HCPCS: 80053; 83036 ==

== ENCOUNTER → 2022-11-29 14:37 | Outpatient (BNVA) | payer MEDICARE, SELFPAY | PROVIDERS: PCP Family Medicine; Visit Provider Family Medicine | DX: E11.9 Type 2 diabetes mellitus without complications (principal); I10 Essential (primary) hypertension; J44.9 Chronic obstructive pulmonary disease, unspecified; E78.2 Mixed hyperlipidemia; R25.2 Cramp and spasm; M05.9 Rheumatoid arthritis with rheumatoid factor, unspecified; Z79.4 Long term (current) use of insulin; Z79.899 Other long term (current) drug therapy; M05.79 Rheumatoid arthritis with rheumatoid factor of multiple sites without organ or systems involvement; K21.9 Gastro-esophageal reflux disease without esophagitis | CPT/HCPCS: 83036 ==

== ENCOUNTER → 2023-02-26 13:40 | Outpatient (BNVA) | payer MEDICARE, SELFPAY | PROVIDERS: PCP Family Medicine; Visit Provider Family Medicine | DX: E11.9 Type 2 diabetes mellitus without complications (principal); Z79.4 Long term (current) use of insulin; M05.9 Rheumatoid arthritis with rheumatoid factor, unspecified; Z79.899 Other long term (current) drug therapy | CPT/HCPCS: 80076; 82565; 83036; 85025; 86140 ==

== ENCOUNTER → 2023-05-28 13:41 | Outpatient (BNVA) | payer MEDICARE, SELFPAY | PROVIDERS: PCP Family Medicine; Visit Provider Family Medicine | DX: E11.9 Type 2 diabetes mellitus without complications (principal); Z79.899 Other long term (current) drug therapy; M05.79 Rheumatoid arthritis with rheumatoid factor of multiple sites without organ or systems involvement; I10 Essential (primary) hypertension; R25.2 Cramp and spasm; E78.2 Mixed hyperlipidemia; N52.9 Male erectile dysfunction, unspecified; Z79.4 Long term (current) use of insulin; K21.9 Gastro-esophageal reflux disease without esophagitis; R79.89 Other specified abnormal findings of blood chemistry; S20.212A Contusion of left front wall of thorax, initial encounter; X58.XXXA Exposure to other specified factors, initial encounter | CPT/HCPCS: 80076; 82565; 83036; 85025; 86140 ==

== ENCOUNTER → 2023-08-28 14:02 | Outpatient (BNVA) | payer MEDICARE, SELFPAY | PROVIDERS: PCP Family Medicine; Visit Provider Family Medicine | DX: E11.9 Type 2 diabetes mellitus without complications (principal); I10 Essential (primary) hypertension; E78.2 Mixed hyperlipidemia; Z79.4 Long term (current) use of insulin | CPT/HCPCS: 80048; 80061; 83036 ==

== ENCOUNTER → 2023-08-29 13:10 | Outpatient (BNVA) | payer MEDICARE, SELFPAY | PROVIDERS: PCP Family Medicine; Visit Provider Family Medicine | DX: M25.552 Pain in left hip (principal); M54.50 Low back pain, unspecified; M47.896 Other spondylosis, lumbar region | CPT/HCPCS: 72100; 73502 ==

== ENCOUNTER → 2023-12-05 14:50 | Outpatient (BNVA) | payer MEDICARE, SELFPAY | PROVIDERS: PCP Family Medicine; Visit Provider Family Medicine | DX: I10 Essential (primary) hypertension (principal); E11.9 Type 2 diabetes mellitus without complications; Z79.4 Long term (current) use of insulin | CPT/HCPCS: 80048; 83036 ==

== ENCOUNTER → 2024-11-12 09:03 | Outpatient (BNVA) | payer MEDICARE, SELFPAY | PROVIDERS: PCP Family Medicine; Visit Provider Family Medicine | DX: I10 Essential (primary) hypertension (principal); E11.9 Type 2 diabetes mellitus without complications; Z79.4 Long term (current) use of insulin; E78.2 Mixed hyperlipidemia | CPT/HCPCS: 80053; 80061; 83036; 85025 ==

== ENCOUNTER → 2025-01-27 08:00 | Outpatient (BNVA) | payer MEDICARE, SELFPAY | PROVIDERS: PCP Family Medicine; Referring Provider Family Medicine; Visit Provider Specialist | DX: G30.9 Alzheimer's disease, unspecified (principal); F02.C0 Dementia in other diseases classified elsewhere, severe, without behavioral disturbance, psychotic disturbance, mood disturbance, and anxiety | CPT/HCPCS: 96116; 99204 ==

== ENCOUNTER 2025-01-27 09:29 | Outpatient (CLI) | payer MEDICARE, SELFPAY ==
[2025-01-27 10:30] LABS: Free T4 Free Thyroxine 1.25 ng/dL (0.82-1.77); Thyroid Stimulating Hormone 2.78 uIU/mL (0.27-4.20)
[2025-01-27 11:02] LABS: Vitamin B12 509 pg/mL (232-1245)
== END 2025-01-27 09:30 | disposition home or self-care (01) ==
LOC: LAB 09:32
PROVIDERS: PCP Family Medicine; Visit Provider Specialist
DX: G30.9 Alzheimer's disease, unspecified (principal); F02.C0 Dementia in other diseases classified elsewhere, severe, without behavioral disturbance, psychotic disturbance, mood disturbance, and anxiety
CPT/HCPCS: 36415; 82542; 82607; 83520; 84439; 84443

== ENCOUNTER → 2025-03-10 14:11 | Outpatient (BNVA) | payer MEDICARE, SELFPAY | PROVIDERS: PCP Family Medicine; Visit Provider Family Medicine | DX: E11.9 Type 2 diabetes mellitus without complications (principal); Z79.4 Long term (current) use of insulin | CPT/HCPCS: 80048; 83036 ==